=== PATIENT | female | born 1990 | race Two or more races ===

== ENCOUNTER → 2022-07-13 | Day surgery (SDC) | payer OTHER ==
--- NOTE | 2022-07-12 13:29 | NUR ---
PACIENTE FEMENINA ALERTA Y ORIENTADA X3, REFIERE EPI TENIDO UN ABORTO ESPOTANEO EL ELHAM DE HOY, REFIERE TENER MOLESTIA Y UN POCO DE DOLOR.
--- NOTE | 2022-07-12 13:41 | NUR ---
PTE ALERTA,ESTABLE Y ORIENTADA.SE EDUCA SOBRE EL TRATAMIENTO QUE RECIBIRA EN EL HOSPITAL Y ESTA REFIERE ENTENDER
--- NOTE | 2022-07-12 15:45 | NUR ---
SE RECIBE PTE ALERTA Y ORIENTADA X3 EN CAMA BAJA CON BARANDAS ELEVADAS POR SEGURIDAD. SE OBSERVA CON BUEN PATRON RESPIRATORIO. H/L EN BRAZO RT CON ANGIO #18 PATENTE. AREA DE VENOPUNCION KARISHMA DE EDEMA Y ERITEMA. RECIBIENDO R/L 1000 ML BAJANDO 50ML/HR. PEND SONOGRAMA TRANSVAGINAL. PEND A TRANSFUNDIR 3 UNIDADES DE PRBCS. SE MANTIENE BAJO OBSERVACION POR CAMBIOS SIGNIFICATIVOS.
[~2022-07-13] VITALS: Ht 157.5 cm; Wt 65.8 kg
[~2022-07-13] MED LIST: PRENATAL + DHA1 EAC1
--- NOTE | 2022-07-13 00:21 | NUR ---
SE RECIBE PTE ALERTA Y ORIENTADA X3 EN LUANNE CON BARANDAS ELEVADAS [place]. SE RECIBE PTE CON TRANSFUSION DE PRBC. PTE CANALIZADA EN MANO IZQUIERDA ANGIO #20 Y SEANO JENS ANGIO #18 AREA KARISHMA DE EDEMA Y DE ENROJECIMIENTO. PTE EN ESPERA DE CONSULTA CON .
--- NOTE | 2022-07-13 08:56 | NUR ---
A LAS 0750 SE RECIBE LLAMADA DE BANCO QUE YA LA TERCERA UNIDAD DE PRBC ESTA DISPONIBLE. SE VERIFICAN VENOPUNCIONES Y SE MONITOREAN LOS SV. SE BUSCA YOEL A LAS 0810AM. SE COMIENZA YEOL A LAS 0826. SE MONITOREAN LOS SV CADA 15 MIN. SE LLAMA A QUIEN REFIERE LO CUBRE LA .
== END | disposition home or self-care (01) ==
LOC: ER 07-12 13:24 → SEC-K 09:49 → CIR.AMB 09:49 → O/R 09:49 → ER 09:49 → O/R 13:15 → SEC-K 13:15 → EDSTATUS 13:30 → O/R 18:20
PROVIDERS: ATTEND General Practice
DX: O03.4 Incomplete spontaneous abortion without complication (principal); Z20.822 Contact with and (suspected) exposure to COVID-19

== ENCOUNTER 2023-11-19 08:00 | Inpatient (IN) | payer OTHER ==
[~2023-11-19] VITALS: Ht 157.5 cm; Wt 68.0 kg
[2023-11-19 09:38] LABS: HEMATOCRIT 37.1 % (36.0-45.00); HEMOGLOBIN 12.4 g/dL (12.0-15.00); MEAN CELL VOLUME 85.9 fL (80.00-100.00); MEAN CORPUSCULAR HEMOGLOBIN 28.6 pg (27.00-32.0); MEAN CORPUSCULAR HGB CONC 33.3 g/dl (32.0-36.0); PLATELET COUNT 333 K/uL (150-450); RED BLOOD COUNT 4.31 M/uL (4.00-6.00); RED CELL DISTRIBUTION WIDTH 15.8 % (11.5-14.5)
[2023-11-19 09:38] LABS: PH,URINE 7.5 (5.0-8.0); URINE APPEARANCE Clear; URINE BILIRRUBIN Negative (NEGATIVE); URINE BLOOD Negative; URINE COLOR Yellow; URINE GLUCOSE Negative (NEGATIVE); URINE LEUKOCYTE Negative; URINE NITRATE Negative; URINE PROTEIN Trace (NEGATIVE)
[2023-11-19 09:39] LABS: URINE BACTERIA 439.7 uL (0.0-1933); URINE EPITHELIAL CELLS 29.5 uL (0.0-38.8); URINE RBC 22.5 uL (0.0-20.8); URINE WBC 8.8 uL (0.0-23.2)
[2023-11-19] MEDS ORDERED: IRON236 MG PO (10:09)
[2023-11-19 10:17] LABS: INR 0.98; PROTHROMBIN TIME 10.3 SECONDS (9.0-11.5)
[2023-11-19 10:18] LABS: ALBUMIN 3.9 gm/dL (3.4-5.0); BILIRUBIN TOTAL 0.34 mg/dL (0.3-1.2); CALCIUM 9.4 mg/dL (8.5-10.1); CREATININE SERUM 0.6 mg/dL (0.55-1.02); GFR 115.85; GLOBULINA 3.5 G/DL (2.4-3.5); POTASSIUM 4.03 mEq/L (3.5-5.1); TOTAL PROTEIN 7.4 gm/dL (6.4-8.2)
[2023-11-24] MEDS ORDERED: CEFOXITIN SODIUM 2,000 MG VIAL IV ONE ×2 (09:12→11:00)
[2023-11-24] MEDS ORDERED: THROMBIN,HU/FIBRINOGEN/CALCIUM 10 ML SYRINGE TOP ONE ×2 (11:12→11:30)
[2023-11-24] MEDS ORDERED: FAMOTIDINE/PF 20 MG/2 ML VIAL IV PUSH SCH (13:37)
[2023-11-24] MEDS ORDERED: KETOROLAC TROMETHAMINE 30 MG VIAL IV SCH (13:45)
[2023-11-24] MEDS ORDERED: MORPHINE SULFATE 4 MG/ML CARTRIDGE IV PRN (13:45)
[2023-11-24] MEDS ORDERED: RINGERS SOLUTION,LACTATED 1,000 ML IV SCH (13:45)
[2023-11-24] MEDS ORDERED: ONDANSETRON HCL 2 MG/ML VIAL IV PRN (13:45)
[2023-11-24] MEDS ORDERED: KETOROLAC TROMETHAMINE 30 MG VIAL ONE (13:58)
[2023-11-24] MEDS ORDERED: FAMOTIDINE/PF 20 MG/2 ML VIAL ONE (13:59)
[2023-11-24 17:56] LABS: HEMATOCRIT 27.9 % (36.0-45.00); MEAN CELL VOLUME 87.6 fL (80.00-100.00); MEAN CORPUSCULAR HGB CONC 33.6 g/dl (32.0-36.0); PLATELET COUNT 310 K/uL (150-450); RED BLOOD COUNT 3.18 M/uL (4.00-6.00); RED CELL DISTRIBUTION WIDTH 15.4 % (11.5-14.5)
[2023-11-24 17:57] LABS: HEMOGLOBIN 9.4 g/dL (12.0-15.00); MEAN CORPUSCULAR HEMOGLOBIN 29.5 pg (27.00-32.0)
[2023-11-24 18:24] LABS: ALBUMIN 2.9 gm/dL (3.4-5.0); BILIRUBIN TOTAL 0.41 mg/dL (0.3-1.2); CALCIUM 8.3 mg/dL (8.5-10.1); CREATININE SERUM 0.52 mg/dL (0.55-1.02); GFR 136.65; GLOBULINA 2.4 G/DL (2.4-3.5); POTASSIUM 4.24 mEq/L (3.5-5.1); TOTAL PROTEIN 5.3 gm/dL (6.4-8.2)
[2023-11-24] MEDS ORDERED: GABAPENTIN 300 MG CAPSULE PO SCH (21:00)
[2023-11-25] MEDS ORDERED: IBUprofen 600 MG TABLET PO SCH (12:00)
== END 2023-11-25 17:16 | disposition home or self-care (01) | DRG 743 ==
LOC: SURH 11-24 07:00 → OB/GYN 11-24 08:00 → O/R 11-24 08:00 → SURH 11-24 08:00 → OB/GYN 11-24 12:34
PROVIDERS: ADMIT Obstetrics & Gynecology Gynecology; ATTEND Obstetrics & Gynecology Gynecology
PROC: 0UB90ZZ Excision of Uterus, Open Approach (ICD-10-PCS; 2023-11-24)
PROC: 0UJD4ZZ Inspection of Uterus and Cervix, Percutaneous Endoscopic Approach (ICD-10-PCS; principal; 2023-11-24 07:00)
DX: D25.2 Subserosal leiomyoma of uterus (principal); Z20.822 Contact with and (suspected) exposure to COVID-19; Z53.31 Laparoscopic surgical procedure converted to open procedure